=== PATIENT | male | born 1950 | race Two or more races ===

== ENCOUNTER 2016-09-18 11:06 | Inpatient (IN) | payer OTHER ==
[~2016-09-18] VITALS: Ht 157.5 cm; Wt 91.1 kg
[~2016-09-18 11:06] MED LIST: ALLO100T PO; BENA5TAB2 PO; LACT10SO55 PO; LOVA10TA63 PO
[2016-09-18] MEDS ORDERED: SOD CHLORIDE 0.9% 500 ML IV STA (11:31)
[2016-09-18] MEDS ORDERED: ONDANSETRON 4 MG INJ IV STA ×2 (11:35→13:42)
[2016-09-18] MEDS ORDERED: morphine 4 MG/ML VIAL IV STA (11:35)
[2016-09-18] MEDS ORDERED: PIPER-TAZO 3.375 GM IV (PMX) 100 ML IVPB STA (11:35)
[2016-09-18] MEDS ORDERED: FINA5TAB4 PO (11:41)
[2016-09-18] MEDS ORDERED: HYDR-906 PO (11:42)
[2016-09-18] MEDS ORDERED: TAMS-14 PO (11:42)
[2016-09-18] MEDS ORDERED: BENA20TA48 PO (11:43)
[2016-09-18] MEDS ORDERED: CHLO25TA13 PO (11:43)
[2016-09-18] MEDS ORDERED: MEVA40 PO (11:44)
[2016-09-18] MEDS ORDERED: METF-382 PO (11:44)
[2016-09-18] MEDS ORDERED: ALLO300T2 PO (11:45)
--- NOTE | 2016-09-18 11:45 | ERA ---
ER Documentation Chief Complaint Date/Time DATE: 09/18/16 TIME: 11:37 Chief Complaint has AP confirmed cholelitiasis sent here by pmd HPI This is a 58-year-old Pashto-speaking male with a known history of diabetes mellitus, hypertension and high cholesterol. The patient was seen and evaluated yesterday by his primary care physician Dr. atkins for abdominal pain. The patient indicates for the past 3 days he has been having significant persistent pain in the right upper quadrant that radiates to the tip of his right scapula. The pain is 10 out of 10 in intensity. The patient states he has had no hemoptysis hematemesis or melanotic stools. He has been unable to tolerate oral intake due to the pain in his last consumption of food was at roughly 10 AM yesterday morning, 14 hours prior to arrival. The patient had no fevers or shaking or chills. He denies any chest pain or pressure that radiates to the neck arm back or jaw. He states he never had any similar episodes of this pain in the past. The pain does not radiate to the lower abdomen and he is no frequency urgency or dysuria. The patient's past surgical history includes a hernia repair. The patient underwent a CT scan of the abdomen yesterday at his clinic which was read by the radiologist as a dilated gallbladder with pericholecystic stranding. He was instructed to come to the emergency department if his symptoms worsened and therefore given that the [place] did not improve his pain he presented for reevaluation to ROS All systems reviewed and are negative except as per history of present illness. Medications Home Meds Reported Medications Lactulose (Lactulose) 10 G/15 Ml Solution, 0 PO UNKNOWN DOSAGE 05/13/11 Allopurinol* (Allopurinol*) 100 Mg Tablet, MG PO UNKNOWN DOSAGE 05/13/11 Benazepril Hcl* (Benazepril Hcl*) 5 Mg Tablet, 0 PO UNKNOWN DOSAGE 05/13/11 Lovastatin* (Lovastatin*) 10 Mg Tablet, 10 MG PO 05/13/11 Allergies Allergies: Coded Allergies: No Known Allergy (Verified , 09/18/16) PMhx/Soc History of Surgery: Yes (LEFT INGUINAL HERINIA) Anesthesia Reaction: No Hx Neurological Disorder: No Hx Respiratory Disorders: No Hx Cardiac Disorders: Yes (HTN, HIGH CHOLESTEROL) Hx Psychiatric Problems: No Hx Miscellaneous Medical Probl: No Hx Alcohol Use: Yes (OCCASIONALLY) Hx Substance Use: No Hx Tobacco Use: No Smoking Status: Never smoker Physical Exam Vitals Vital Signs Date Time Temp Pulse Resp B/P Pulse Ox O2 Delivery O2 Flow Rate FiO2 09/18/16 11:14 98.6 68 18 186/81 97 Physical Exam Constitutional:Well-developed. Well-nourished. HEENT:Normocephalic. Atraumatic.Pupils were equal round reactive to light. Dry mucous membranes.No tonsillar exudates. Neck: No nuchal rigidity. No lymphadenopathy. No posterior cervical spine tenderness or step-offs. Respiratory: Not using accessory muscles of respiration.Lungs were clear to auscultation bilaterally. No rhonchi. No rales. No wheezing. Cardiovascular: Regular rate regular rhythm.No murmurs. No rubs were appreciated.S1, S2 normal. Distal pulses are palpable 2+ bilaterally. GI: Abdomen was soft. Tenderness in the right upper quadrant with positive Lenz sign. Non Distended. No pulsatile abdominal masses or bruits. No rebound. No guarding. Bowel sounds were present and normal. Muscle skeletal: Full range of motion of both the upper and lower extremities bilaterally.Normal muscle tone.No assymetrical calf tenderness or swelling. Skin: No petechia, no purpura. No lesions on the palms or the soles of the feet. No maculopapular rash. NEURO: Patient was alert, awake, orientated x3.No facial droop. Gait observed and normal with no ataxia.Speech had regular rate and rhythm. No focal neurological deficits. Results 24 hrs Current Medications Medications (Trade) Dose Ordered Sig/Brianne Route PRN Reason Start Time Stop Time Status Last Admin Dose Admin Sodium Chloride (NS) 500 ml @ 500 mls/hr Q1H STAT IV 09/18/16 11:31 09/18/16 12:30 Procedures/MDM The patient presented to the emergency department with epigastric pain. My differential diagnosis included but was not limited to abdominal aortic aneurysm , choledocholithiasis, gallstone ileus, renal colic, pyelonephritis, pancreatitis, peptic ulcer disease, atypical myocardical infarction, mesenteric ischemia, GERD, pulmonary infarction. The patient was placed on a field technical specialist, continuous pulse oximetry and IV access was established by nursing staff. An EKG was obtained to rule out myocardial ischemia. 12 Lead EKG tracing ordered and reviewed by myself showed: Normal sinus rhythm of 70 bpm and no arrhythmia. MT interval normal. QRS duration normal. No ST segment elevation No ST segment depression. No changes consistent with acute ischemia. There was no elevation of LFTs to suggest ductal obstruction, cholangitis or hepatitis. Given that the urinalysis did not show bilirubinuria, my suspicion for common duct obstruction or hepatitis was low. I obtained an ultrasound of the abdomen and given the patient's physical exam findings with positive Lenz sign I was concerned for cholecystitis. The patient was given IV Zosyn. For analgesic control the patient received intravenous morphine and Zofran. Surgical consult was placed to Dr. Marcos. The patient was made n.p.o. Patient will be admitted in serious condition the hospitalist Dr. Moseley for definitive treatment with a cholecystectomy. Departure Diagnosis: Primary Impression: Cholecystitis Condition: Serious AMIRA VANCE Sep 18, 2016 11:45
[2016-09-18 11:56] LABS: ADD SCAN DIFF NO
[2016-09-18 12:07] LABS: ABNORMAL IP MESSAGE 1; ALBUMIN 4.2 g/dl (3.3-4.9); BASOPHILS % 0.1 % (0.0-2.0); CHLORIDE 95 mmol/L (97-110); HEMATOCRIT 46.2 % (42.0-52.0); HEMOGLOBIN 15.1 g/dl (14.0-18.0); LYMPHOCYTES # 1.6 10^3/ul (0.8-2.9); LYMPHOCYTES % 10.6 % (15.0-51.0); MEAN CORPUSCULAR HEMOGLOBIN 29.7 pg (29.0-33.0); MEAN CORPUSCULAR HGB CONC 32.7 g/dl (32.0-37.0); MEAN CORPUSCULAR VOLUME 90.8 fl (82.0-101.0); MEAN PLATELET VOLUME 12.3 fl (7.4-10.4); MONOCYTE # 1.6 10^3/ul (0.3-0.9); NEUTROPHIL # 11.4 10^3/ul (1.6-7.5); NEUTROPHILS % 77.7 % (39.0-77.0); PLATELET COUNT 150 10^3/UL (140-415); POTASSIUM 4.2 mmol/L (3.5-5.1); RED BLOOD COUNT 5.09 10^6/ul (4.70-6.10); RED CELL DISTRIBUTION WIDTH 14.5 % (11.5-14.5); SODIUM 138 mmol/L (135-144); WHITE BLOOD COUNT 14.6 10^3/ul (4.8-10.8)
[2016-09-18 12:09] LABS: AMYLASE 50 U/L (11-123)
[2016-09-18 12:10] LABS: ALANINE AMINOTRANSFERASE 42 IU/L (13-69); ALBUMIN/GLOBULIN RATIO 0.95; ALKALINE PHOSPHATASE 92 IU/L (42-121); ANION GAP 19 (8-16); ASPARTATE AMINO TRANSFERASE 26 IU/L (15-46); BILIRUBIN,INDIRECT 0.8 mg/dl (0-1.1); BILIRUBIN,TOTAL 0.8 mg/dl (0.2-1.3); BLOOD UREA NITROGEN 13 mg/dl (7-20); CARBON DIOXIDE 28 mmol/L (21-31); CREATININE 0.76 mg/dl (0.61-1.24); GLUCOSE 146 mg/dl (70-220); TOTAL PROTEIN 8.6 g/dl (6.1-8.1)
[2016-09-18 12:18] LABS: INR 0.98
[2016-09-18 12:19] LABS: PARTIAL THROMBOPLASTIN TIME 30.9 Sec (25.0-35.0)
[2016-09-18 12:28] LABS: TROPONIN-I < 0.012 ng/ml (0.00-0.12)
--- NOTE | 2016-09-18 12:41 | RADRPT ---
PROCEDURE: US Abdomen (right upper quadrant). CLINICAL INDICATION: Abdominal pain. TECHNIQUE: Multiple real-time longitudinal and transverse images of the right upper quadrant of th e abdomen were acquired utilizing a curved array transducer. Images were reviewed on a high-resoluti on PACS workstation. COMPARISON: None FINDINGS: The liver is borderline enlarged at 17.8 cm in length with a slightly coarsened echotexture suggesti ng steatosis without focal mass or intrahepatic biliary dilatation. There is normal hepatopedal hawa w within the main portal vein. The gallbladder is well defined and demonstrates some sludge without stones. There is mild wall thickening at 4.1 mm. The common bile duct measures 7.9 mm in maximal dimension. The pancreas is obscured by overlying bowel gas.. No free fluid is identified. The right kidney measures 9.9 cm in length. There is normal echogenicity within the right kidney. There is no perinephric fluid collection. No hydronephrosis, mass, or calculus is seen. IMPRESSION: 1. Borderline hepatomegaly with a slightly coarsened echotexture suggesting mild steatosis. 2. Gallbladder wall thickening with a small amount of sludge present with borderline dilated common bile duct. RPTAT: [facility] Physician Chikis Date Time Electronically viewed and signed by Physician Chikis on 09/18/2016 12:40 /
[2016-09-18] MEDS ORDERED: ONDANSETRON 4 MG INJ IV PRN ×2 (13:30→15:00)
[2016-09-18] MEDS ORDERED: ACETAMINOPHEN 325 MG TAB PO PRN ×2 (13:30→15:00)
[2016-09-18] MEDS ORDERED: HYDROmorphONE 1 MG/ML SYG IV STA (13:42)
[2016-09-18 14:43] VITALS: Ht 157.5 cm; Wt 91.1 kg
[2016-09-18 14:47] VITALS: BP 137/74; PULSE 80; RESP 20
[2016-09-18] MEDS ORDERED: ACETAMINOPHEN 650 MG SUPP PR PRN (15:00)
[2016-09-18] MEDS ORDERED: HYDROCODONE/APAP (5/325) TAB PO PRN ×2 (15:00)
[2016-09-18] MEDS ORDERED: BISACODYL 10 MG SUPP PR PRN (15:00)
[2016-09-18] MEDS ORDERED: NACL 0.9% 3 ML SYG IV SCH (15:00)
[2016-09-18] MEDS ORDERED: MAGNESIUM HYDROXIDE 30ML CUP PO PRN (15:00)
[2016-09-18] MEDS ORDERED: DOCUSATE SODIUM 100 MG CAP PO PRN (15:00)
[2016-09-18] MEDS: SOD CHLORIDE 0.9% 1,000 ML IV SCH (15:45)
--- NOTE | 2016-09-18 17:02 | RADRPT ---
PROCEDURE: MRCP. CLINICAL INDICATION: Abdominal pain, common bile duct dilatation. TECHNIQUE: MRCP was performed. Patient was examined without contrast. 3-D coronal rotating MIP i mages of the biliary tree are available for review. COMPARISON: Ultrasound, 09/18/2016 FINDINGS: The gallbladder is distended and contains sludge and/or small gallstones. Gallbladder wall thickeni ng and pericholecystic fluid are identified. Findings are suggestive of acute cholecystitis. There is no intra or extrahepatic biliary dilatation. No common duct stone, stricture or filling defect is identified. Pancreatic duct is normal in caliber. Liver, pancreas, spleen, adrenal glands and kidneys are unremarkable except for benign renal cysts. No obstructive uropathy is identified. The stomach is grossly unremarkable. Abdominal aorta is no rmal in caliber. There is no retroperitoneal or emmy hepatis lymphadenopathy. No bowel obstructio n or abscess is identified. The surrounding osseous structures are unremarkable. IMPRESSION: 1. The gallbladder is distended and contains sludge and/or small gallstones. Gallbladder wall thic kening and pericholecystic fluid are identified. Findings are suggestive of acute cholecystitis. 2. No biliary dilatation or choledocholithiasis is identified. RPTAT: AA .Bernabe Alfaro MD, MD Date Time Electronically viewed and signed by .Bernabe Alfaro MD, on 09/18/2016 17:02 .R/
[2016-09-18] MEDS: PIPER-TAZO 3.375 GM IV (PMX) 100 ML IVPB SCH (17:22)
[2016-09-18 20:49] VITALS: BP 101/56; RESP 18
[2016-09-18] MEDS: TAMSULOSIN (SR) 0.4 MG CAP PO SCH (21:10)
[2016-09-18] MEDS: morphine 2 MG INJ IV PRN (21:10)
[2016-09-18] MEDS: ATORVASTATIN 10 MG TAB PO SCH (21:11)
--- NOTE | 2016-09-18 23:37 | CONS ---
DATE OF ADMISSION: 09/18/2016 DATE OF CONSULTATION: 09/18/2016 CHIEF COMPLAINT: 1. Abdominal pain. 2. Cholecystitis. 3. Leukocytosis. 4. BMI of 37. 5. Hypertension. 6. Hypercholesterolemia. HISTORY OF PRESENT ILLNESS: Mr. Keegan Tapia is a 66-year-old male with multiple comorbidit ies who presents with repeated episodes of abdominal pain and epigastric and right upper quadrant as sociated with radiation of pain into the scapula with 10/10 sharp pain. He denies any blood per milena th or rectum. No dysuria. No chest pain, no shortness of breath. No fevers or chills. No nausea or vomiting. He has had multiple similar episodes in the past. No trauma or sick contacts. No vis ual or neurologic changes. No seizure. No rashes. No color change of skin, urine, stool, or eyeba lls. In the emergency room, he is found to be afebrile with stable vitals. Blood work shows leukocytosis with a left shift. Chemistry is mostly normal, no abnormalities in the LFTs. Coags are within nor mal. Ultrasound of the abdomen identifies hepatomegaly with steatosis and gallbladder wall thickening wit h borderline common bile duct. MRCP was performed, identifying gallbladder distention with sludge a nd/or small gallstones. There was gallbladder wall thickening and pericholecystic fluid. This is s uggestive of acute cholecystitis. No biliary dilatation or choledocholithiasis is identified. No s tones were seen on the ultrasound. PAST MEDICAL HISTORY: 1. Diabetes. 2. Hypertension. 3. Morbid obesity. 4. History of ventral hernia. 5. Hypercholesterolemia. 6. Possible acalculous cholecystitis. 7. Abdominal pain. PAST SURGICAL HISTORY: Ventral hernia repair. MEDICATIONS: As per SEP. ALLERGIES: NONE. SOCIAL HISTORY: No recreational drugs or tobacco. Social ETOH. FAMILY HISTORY: Noncontributory. REVIEW OF SYSTEMS: A 12-point review of systems negative unless addressed in the HPI. PHYSICAL EXAMINATION: VITAL SIGNS: Temperature is 98.6, pulse 68, blood pressure 196/81. GENERAL: No acute distress, obese. HEENT: Pupils equal, reactive. No scleral icterus. Mucous membranes are moist. NECK: Supple, no JVD. PULMONARY: Normal respiratory effort. No wheezing. HEART: S1, S2 present. ABDOMEN: Soft. Minimally tender in the epigastric and right upper quadrant without rebound, guardi ng, rigidity, or Lenz's. EXTREMITIES: No edema. VASCULAR: Cap refill less than 2 seconds. NEUROLOGIC: Alert, oriented, moves all 4 extremities grossly. LABORATORY AND RADIOGRAPHIC: As per chart and HPI. ASSESSMENT AND PLAN: Mr. Keegan Tapia is a 66-year-old male with multiple significant comor bidities. 1. Abdominal pain with cholecystitis, questionable acalculous versus calculus (stones not seen on u ltrasound and questionable on MRCP). Continue antibiotics. Will monitor patient. If symptoms have not improved or worsening, will proceed with surgery. The patient is understanding of the situatio n and in agreement with the plan. 2. Morbid obesity. Patient is highly encouraged to optimize his nutrition and exercise to improve his overall health status. 3. Hypertension. Continue nutrition and medication control and encourage weight loss. 4. Diabetes. Continue nutrition and medication control and encourage weight loss. 5. Hypercholesterolemia. Continue nutrition and medication control and encourage weight loss. 6. Leukocytosis secondary to #1. Continue antibiotics and treatment as above. Thank you very much for consulting me in this patient's care. Dictated By: VADIM NEGRO/JAY Conf#: [id number] DID#: [id number]
[2016-09-19] VITALS (8 sets, daily range): BP systolic 115–131; BP diastolic 63–77; PULSE 66–126; RESP 14–22
[2016-09-19] MEDS: SOD CHLORIDE 0.9% 1,000 ML IV SCH ×3 (00:56→11:23)
[2016-09-19] MEDS: PIPER-TAZO 3.375 GM IV (PMX) 100 ML IVPB SCH ×4 (01:35→17:34)
[2016-09-19] MEDS: morphine 2 MG INJ IV PRN ×2 (01:37→07:42)
[2016-09-19] MEDS: PANTOPRAZOLE 40 MG INJ IV SCH (05:04)
[2016-09-19 05:26] LABS: ALBUMIN 3.5 g/dl (3.3-4.9)
[2016-09-19 05:27] LABS: POTASSIUM 3.7 mmol/L (3.5-5.1)
[2016-09-19 05:29] LABS: CREATININE 0.79 mg/dl (0.61-1.24)
[2016-09-19 05:30] LABS: ALBUMIN/GLOBULIN RATIO 0.89; BILIRUBIN,INDIRECT 1.1 mg/dl (0-1.1); BILIRUBIN,TOTAL 1.1 mg/dl (0.2-1.3); CALCIUM 8.2 mg/dl (8.4-10.2); PHOSPHORUS 2.6 mg/dl (2.5-4.9); TOTAL PROTEIN 7.4 g/dl (6.1-8.1)
[2016-09-19 05:31] LABS: CHOL/HDL RATIO 2.8 RATIO
[2016-09-19 05:39] LABS: T3 UPTAKE 38.6 % (23.5-40.5)
[2016-09-19 05:53] LABS: THYROID STIMULATING HORMONE 1.01 MIU/L (0.465-4.680)
--- NOTE | 2016-09-19 06:17 | HP ---
DATE OF ADMISSION: 09/18/2016 TIME SEEN: 2300 CHIEF COMPLAINT: Abdominal pain. HISTORY OF PRESENT ILLNESS: The patient is a 66-year-old male with a history of hypertension, diabe alysa, dyslipidemia, BPH, gout, and morbid obesity with a BMI of almost 37 who presented to the emerge ncy department with a chief complaint of abdominal pain. Pain is mainly localized in right upper qu adrant area and also at some extent in the epigastric area with radiation to his upper back. He als o reported nausea, but no vomiting. Because if the severity of the pain, he had not eaten since yes terday. He was evaluated at the clinic prior to coming to [facility]. At the clinic, CT scan shows dilate d gallbladder with pericholecystic stranding. He was told to go to the ER because of a concern for cholecystitis. He denied any fever, chills, chest pain, shortness of breath. When he presented to the ER, blood pressure was elevated at 186/81. Otherwise, the rest of his marquez ls were stable. Laboratory value shows a WBC of 14.6, chloride 95. Otherwise, CBC and CMP are with in normal limits including his liver chemistries and lipase. Abdominal ultrasound here shows mild s teatosis and gallbladder wall thickening with a small amount of sludge with borderline dilated commo n bile duct. MRCP shows a distended gallbladder with sludge or small gallstones. Gallbladder wall thickening and pericholecystic fluid were identified suggestive of acute cholecystitis. No biliary dilatation or choledocholithiasis. The patient has already been seen by Dr. Marcos from surgery [facility] plan for surgical intervention if pain persists or worsens. REVIEW OF SYSTEMS: A 12-point review of systems was performed and is negative except as mentioned i n the HPI. PAST MEDICAL HISTORY: As per HPI. PAST SURGICAL HISTORY: Hernia repair. SOCIAL HISTORY: Drinks occasionally, otherwise denied tobacco or illicit drug use. ALLERGIES: NO KNOWN DRUG ALLERGIES. HOME MEDICATIONS: 1. Flomax. 2. Benazepril. 3. Lovastatin. 4. [place]. 5. Chlorthalidone. 6. Metformin. 7. Allopurinol. 8. Finasteride. PHYSICAL EXAMINATION: VITAL SIGNS: Stable. GENERAL: No acute distress. He actually looks actually looks comfortable. HEENT: No obvious head deformity. Pupils are reactive to light. Extraocular muscles intact. CARDIOVASCULAR: Regular rate and rhythm with no extra heart sounds. LUNGS: Clear. ABDOMEN: Soft. There was tenderness in the right upper quadrant area with no guarding, no rigidity . EXTREMITIES: No edema. LABORATORY: Pertinent positives as mentioned in the HPI. IMAGING: Abdominal ultrasound and MRCP as well as a CT of abdomen from an outside clinic with resul ts as mentioned in the HPI. IMPRESSION: 1. Acute cholecystitis. 2. Right upper quadrant abdominal pain, secondary to above. 3. Hypertension, now blood pressure within acceptable range. 4. History of diabetes. 5. History of dyslipidemia. 6. History of BPH 7. History of gout. 8. Obesity with a BMI of almost 37. PLAN: We will keep n.p.o. with IV fluids. We will provide pain medication and antiemetics as neede d. He has already been seen by Dr. Marcos from surgery with a plan for surgical intervention if sy mptoms persist or worsen. Will provide pain medication and antiemetics as needed. He will be diya nued with his home medication with adjustment as needed. Further workup and management will be per clinical course. Dictated By: CINDY LORD/JAY Conf#: [id number] DID#: [id number]
[2016-09-19] MEDS: BENAZEPRIL 20 MG TAB PO SCH (07:37)
[2016-09-19] MEDS: ALLOPURINOL 300 MG TAB PO SCH (07:37)
[2016-09-19] MEDS: FINASTERIDE 5 MG TAB PO SCH (07:37)
[2016-09-19] MEDS: CHLORTHALIDONE 25 MG TAB PO SCH (07:37)
[2016-09-19 12:49] LABS: ADD SCAN DIFF NO
[2016-09-19 12:53] LABS: ABNORMAL IP MESSAGE 1; BASOPHILS % 0.1 % (0.0-2.0); HEMATOCRIT 39.6 % (42.0-52.0); HEMOGLOBIN 13.4 g/dl (14.0-18.0); LYMPHOCYTES # 0.9 10^3/ul (0.8-2.9); LYMPHOCYTES % 6.4 % (15.0-51.0); MEAN CORPUSCULAR HEMOGLOBIN 30.4 pg (29.0-33.0); MEAN CORPUSCULAR HGB CONC 33.8 g/dl (32.0-37.0); MEAN CORPUSCULAR VOLUME 89.8 fl (82.0-101.0); MEAN PLATELET VOLUME 12.2 fl (7.4-10.4); MONOCYTE # 1.6 10^3/ul (0.3-0.9); MONOCYTES % 11.4 % (0.0-11.0); NEUTROPHIL # 11.5 10^3/ul (1.6-7.5); NEUTROPHILS % 81.7 % (39.0-77.0); PLATELET COUNT 121 10^3/UL (140-415); RED BLOOD COUNT 4.41 10^6/ul (4.70-6.10); RED CELL DISTRIBUTION WIDTH 14.4 % (11.5-14.5); WHITE BLOOD COUNT 14.1 10^3/ul (4.8-10.8)
--- NOTE | 2016-09-19 15:50 | PN ---
Date/Time of Note Date/Time of Note DATE: 09/19/16 TIME: 15:41 Assessment/Plan VTE Prophylaxis VTE Prophylaxis Intervention: SCD's Lines/Catheters IV Catheter Type (from Nrs): Peripheral IV Urinary Cath still in place: No Assessment/Plan Chief Complaint/Hosp Course Does not and plan 1. Acute cholecystitis. Patient with MRI and abdominal imaging consistent with cholecystitis. Still was symptomatic pain. Follow-up with surgeon. Tentative plan for cholecystectomy. Continue on antibiotics. Keep npo 2. Leukocytosis. Continue on antibiotics. Likely secondary to #1 3. Essential hypertension. Continue on antihypertensives and adjust as needed 4. History of BPH. Remains on Proscar. To be continued 5. Dyslipidemia. Continue on statin disposition and plan: Continue IV fluids. Continue with analgesics. Antipyretics for fever. Follow-up with surgeon recommendations Discussed in of care with Dr. Moseley Problems: Subjective 24 Hr Interval Summary Free Text/Dictation still with moderate abdominal pain. also noted with fever this morning Exam/Review of Systems Vital Signs Vitals Vital Signs Date Time Temp Pulse Resp B/P Pulse Ox O2 Delivery O2 Flow Rate FiO2 09/19/16 14:45 97.4 66 09/19/16 08:03 18 130/72 95 09/18/16 14:47 Room Air Intake and Output 09/18/16 09/18/16 09/19/16 15:00 23:00 07:00 Intake Total 200 ml 1025 ml Balance 200 ml 1025 ml Exam General: still in distress secondary to abd pain Eyes: pupils equal round, Anicteric sclera Neck: Supple nontender, no JVD Cardiac: regular rate Pulmonary: No coarse rhonchi or breathing auscultated GI: tender on palpation in epigastric area and right upper quadrant area Extremities: No edema bilateral lower extremities Skin: Clean dry and intact Neurologic: Alert to person place and time and situation Results Result Diagram: 09/19/16 1220 09/19/16 0425 Results 24 hrs Laboratory Tests Test 09/19/16 04:25 09/19/16 12:20 Alanine Aminotransferase (ALT/SGPT) 96 H Albumin 3.5 Albumin/Globulin Ratio 0.89 Alkaline Phosphatase 102 Anion Gap 15 Aspartate Amino Transf (AST/SGOT) 58 #H Blood Urea Nitrogen 12 Calcium Level 8.2 L Carbon Dioxide Level 25 Chloride Level 100 Cholesterol Level 140 Cholesterol/HDL Ratio 2.8 Creatinine 0.79 Direct Bilirubin 0.00 Free Thyroxine Index 2.08 Globulin 3.90 H Glucose Level 135 HDL Cholesterol 50 Hemoglobin A1c 6.1 H Indirect Bilirubin 1.1 LDL Cholesterol, Calculated 78 Magnesium Level 2.0 Phosphorus Level 2.6 Potassium Level 3.7 Sodium Level 136 Thyroid Stimulating Hormone (TSH) 1.010 Thyroxine (T4) 5.4 L Total Bilirubin 1.1 Total Protein 7.4 # Triglycerides Level 58 Triiodothyronine (T3) Uptake 38.6 Basophils # 0.0 Basophils % 0.1 Eosinophils # 0.0 Eosinophils % 0.0 Hematocrit 39.6 L Hemoglobin 13.4 L Lymphocytes # 0.9 Lymphocytes % 6.4 L Mean Corpuscular Hemoglobin 30.4 Mean Corpuscular Hemoglobin Concent 33.8 Mean Corpuscular Volume 89.8 Mean Platelet Volume 12.2 H Monocytes # 1.6 H Monocytes % 11.4 H Neutrophils # 11.5 H Neutrophils % 81.7 H Nucleated Red Blood Cells # 0.0 Nucleated Red Blood Cells % 0.0 Platelet Count 121 L Red Blood Count 4.41 L Red Cell Distribution Width 14.4 White Blood Count 14.1 H Medications Medications Current Medications Allopurinol (Zyloprim) 300 mg DAILY PO ; Start 09/19/16 at 09:00 Benazepril HCl (Lotensin) 20 mg DAILY PO ; Start 09/19/16 at 09:00 Chlorthalidone (Hygroton) 12.5 mg DAILY PO ; Start 09/19/16 at 09:00 Finasteride (Proscar) 5 mg DAILY PO ; Start 09/19/16 at 09:00 Tamsulosin HCl (Flomax) 0.4 mg DAILY@21 PO Last administered on 09/18/16 21:10 ; Admin Dose 0.4 MG; Start 09/18/16 at 21:00 Atorvastatin Calcium 10 mg 10 mg DAILY@21 PO Last administered on 09/18/16 21: 11; Admin Dose 10 MG; Start 09/18/16 at 21:00 Sodium Chloride (NS) 1,000 ml @ 100 mls/hr Q10H IV Last administered on 11:23; Admin Dose 100 MLS/HR; Start 09/18/16 at 14:56 Ondansetron HCl (Zofran Inj) 4 mg Q6H PRN IV NAUSEA AND/OR VOMITING; Start 09/18 at 15:00 Acetaminophen (Tylenol Tab) 650 mg Q6H PRN PO PAIN LEVEL 1-3 OR FEVER; Start at 15:00 Acetaminophen (Tylenol Supp) 650 mg Q6H PRN MT PAIN LEVEL 1-3 OR FEVER; Start 09/18/16 at 15:00 Acetaminophen/ Hydrocodone Bitart ([place] (5/325)) 1 tab Q6H PRN PO MODERATE PAIN LEVEL 4-6; Start 09/18/16 at 15:00 Acetaminophen/ Hydrocodone Bitart ([place] (5/325)) 2 tab Q6H PRN PO SEVERE PAIN LEVEL 7-10; Start 09/18/16 at 15:00 Morphine Sulfate (morphine) 2 mg Q4H PRN IV SEVERE PAIN LEVEL 7-10 Last administered on 09/19/16 07:42; Admin Dose 2 MG; Start 09/18/16 at 15:00 Docusate Sodium (Colace) 100 mg Q12H PRN PO CONSTIPATION; Start 09/18/16 at 15: 00 Magnesium Hydroxide (Milk Of Mag) 30 ml DAILY PRN PO CONSTIPATION; Start at 15:00 Bisacodyl (Dulcolax Supp) 10 mg DAILY PRN MT CONSTIPATION; Start 09/18/16 at 15: 00 Pantoprazole 40 mg 40 mg DAILY@06 IV Last administered on 09/19/16 05:04; Admin Dose 40 MG; Start 09/19/16 at 06:00 Piperacillin Sod/ Tazobactam Sod (Zosyn 3.375gm/ 100 ml (Pmx)) 100 ml @ 200 mls /hr Q6 IVPB Last administered on 09/19/16 11:23; Admin Dose 200 MLS/HR; Start 09/18/16 at 18:00 THERESE DE PAZ Sep 19, 2016 15:49
--- NOTE | 2016-09-19 17:13 | PN ---
Date/Time of Note Date/Time of Note DATE: 09/19/16 TIME: 17:11 Assessment/Plan Lines/Catheters IV Catheter Type (from [facility]): Peripheral IV Guerrier in Place (from [facility]): No Assessment/Plan Chief Complaint/Hosp Course 1. Abdominal pain with cholecystitis, questionable acalculous versus calculus ( stones not seen on ultrasound and questionable on MRCP). -Continue antibiotics. -OR -Judicious fluid management 2. Morbid obesity. Patient is highly encouraged to optimize his nutrition and exercise to improve his overall health status. 3. Hypertension. Continue nutrition and medication control and encourage weight loss. 4. Diabetes. Continue nutrition and medication control and encourage weight loss. 5. Hypercholesterolemia. Continue nutrition and medication control and encourage weight loss. 6. Leukocytosis secondary to #1. Continue antibiotics and treatment as above. Thank you Problems: Subjective 24 Hr Interval Summary Fever. Chills. Pain persists. No n/v. No cp/sob. No cough/ocampo/dizzy/visual or neuro changes. No dysuria. Wants to proceed with surgery knowing it is possibly acalculous cholecystitis. Exam/Review of Systems Vital Signs Vitals Vital Signs Date Time Temp Pulse Resp B/P Pulse Ox O2 Delivery O2 Flow Rate FiO2 09/19/16 14:45 97.4 66 09/19/16 08:03 18 130/72 95 09/18/16 14:47 Room Air Intake and Output 09/18/16 09/18/16 09/19/16 15:00 23:00 07:00 Intake Total 200 ml 1025 ml Balance 200 ml 1025 ml Exam Free Text/Dictation GENERAL: No acute distress, obese. HEENT: Pupils equal, reactive. No scleral icterus. Mucous membranes are moist. NECK: Supple, no JVD. PULMONARY: Normal respiratory effort. No wheezing. HEART: S1, S2 present. ABDOMEN: Soft. Minimally tender in the epigastric and right upper quadrant without rebound, guarding, rigidity, or Elnz's. EXTREMITIES: No edema. VASCULAR: Cap refill less than 2 seconds. NEUROLOGIC: Alert, oriented, moves all 4 extremities grossly. Results Result Diagram: 09/19/16 1220 09/19/16 0425 VADIM SHAY MD Sep 19, 2016 17:12
[2016-09-19] MEDS ORDERED: LIDOCAINE 2% (SDV) 5 ML INJ ONE ×2 (19:56→22:04)
[2016-09-19] MEDS ORDERED: MIDAZOLAM 1 MG/ML 2 ML INJ ONE (19:56)
[2016-09-19] MEDS ORDERED: PROPOFOL 0 ML ONE (19:57)
[2016-09-19] MEDS ORDERED: FENTAnyl 50 MCG/ML VIAL ONE (19:57)
[2016-09-19] MEDS ORDERED: ROCURONIUM 50 MG INJ ONE ×2 (19:57→22:04)
[2016-09-19] MEDS ORDERED: SUCCINYLCHOLINE CHLORIDE 100 MG/5 ML SYG IV ONE ×2 (19:57→22:04)
[2016-09-19] MEDS: ATORVASTATIN 10 MG TAB PO SCH (21:00)
[2016-09-19] MEDS: TAMSULOSIN (SR) 0.4 MG CAP PO SCH (21:00)
[2016-09-19] MEDS ORDERED: BUPIVACAINE 0.25%/EPI (SDV) 30 ML INJ ONE (21:31)
[2016-09-19] MEDS ORDERED: LIDOCAINE 1% (MPF) 30 ML INJ ONE (21:31)
[2016-09-19] MEDS ORDERED: IOHEXOL 300MG/ML 30 ML BTL ONE (21:47)
[2016-09-19] MEDS ORDERED: GLYCOPYRROLATE 0.4 MG INJ ONE ×3 (22:04→23:05)
[2016-09-19] MEDS ORDERED: NEOSTIGMINE 3 MG/3 ML SYRINGE ONE ×2 (22:04→23:05)
[2016-09-19] MEDS ORDERED: PROPOFOL 20 ML ONE (22:04)
[2016-09-19] MEDS ORDERED: MEPERIDINE 100 MG INJ ONE (22:05)
--- NOTE | 2016-09-19 22:26 | OPR ---
Date/Time of Note Date/Time of Note DATE: 09/19/16 TIME: 22:24 Operative Report Procedure Date: Sep 19, 2016 Procedure Description Preoperative Diagnosis: 1. Cholecystitis, acalculous versus calculus 2. Abnormal LFTs 3. Abdominal pain 4. Leukocytosis Postoperative Diagnosis: 1. Cholecystitis, acalculous, possible gangrenous 2. Abnormal LFTs 3. Abdominal pain 4. Leukocytosis possible sepsis Operation(s) Performed: 1. 3 port laparoscopic cholecystectomy 2. Laparoscopic liver wedge resection biopsy 3. Local anesthetic [place], [id number] 4. Laparoscopic guided transversus abdominis plane block, bilateral Surgeon: VADIM SHAY MD Anesthesia: general, local, & regional Anesthesiologist: Ghanshyam Dean MD Estimated Blood Loss: 50 ml's Specimens: Liver Gallbladder Tubes/Drains: 19 [place] Selvin Complications: None Pt Condition Post Procedure: stable Disposition: PACU Indications: Per notes. Risks include but are not limited to bleeding, infection, abscess, seroma, damage to intestines, damage to the liver, damage to biliary tree, hernia formation, chronic pain, biloma, need for reoperations or further surgeries, MA , stroke, PE, DVT, pneumonia, organ failures, or even . Procedure Description: Patient was brought and placed supine on the operating table SCDs were placed, preoperative antibiotics were administered, all pressure points were well-padded , and after induction of anesthesia patient was prepped and draped in usual sterile fashion and timeout was performed. Incision was made in the ruq and using optiview port and 5mm 0deg scope abdomen was entered and insufflated to 15mmHg. . Laparoscopy was performed with a 5 mm 30 scope. No injuries were identified. The liver looks somewhat abnormal color. Gallbladder is significantly infected with possible gangrenous changes. 12 mm port is placed in subxiphoid under direct visualization followed by another 5 mm port in the right upper quadrant. All port sites were injected with quarter percent Marcaine with epi and 1% lidocaine prior to any incisions. Bilateral transversus abdominis plane block was performed under laparoscopic visualization to aid with pain control intra-and postoperatively. Patient was placed in reverse Trendelenburg and right side up on gallbladder was retracted superolaterally. Using electrocautery and blunt dissection I was able to identify the cystic artery and cystic duct. The duct tapered into the gallbladder. Full critical angle view was identified. Clips were placed on artery twice proximally and once distally and transected. The duct was transected with endogia white load stapler. The gallbladder had been taken off the liver with electrocautery using a top down approach feeding straight into the cystic duct before cystic duct transection. Hemostasis was obtained. Gallbladder was placed in an Endo Catch bag and removed through the subxiphoid port site which had to be enlarged to allow extraction. Due to the abnormality of the liver decision was made to perform liver wedge resection which was done with electrocautery and scissor with complete hemostasis right after. The specimen was sent to pathology for further evaluation. There was complete hemostasis. 19 [place] Selvin drain was placed through the lateral port site and secured with 2-0 nylon. 12 mm made port site fascia was closed with Endo Close of an 0 Vicryl in a [id number] manner. Ports and CO2 were removed under direct visualization. Next complete hemostasis. Wounds were thoroughly irrigated skin was closed with 4-0 Monocryl in subcuticular fashion. Dermabond was applied. Patient was extubated and transferred to recovery room in stable condition and all counts were correct and the end of the operation 2. VADIM SHAY MD Sep 19, 2016 22:26 4-0 Monocryl in subcuticular fashion. Dermabond was applied. Patient was extubated and transferred to recovery room in stable condition and all counts were correct and the end of the operation 2. HIDA scan will be obtained to verify the findings. VADIM SHAY MD Sep 19, 2016 22:26
[2016-09-19] MEDS ORDERED: HYDROmorphONE 1 MG/ML SYG IV PRN (22:30)
[2016-09-20] VITALS: BP 124/67; PULSE 108; RESP 18
[2016-09-20] MEDS ORDERED: morphine (1 MG/ML) 10ML SYRINGE IV PRN ×2
[2016-09-20] MEDS ORDERED: MIDAZOLAM 1 MG/ML 2 ML INJ IV PRN
[2016-09-20] MEDS ORDERED: LABETALOL HCL 20MG INJ IV PRN
[2016-09-20] MEDS ORDERED: DIPHENHYDRAMINE 50 MG INJ IV PRN
[2016-09-20] MEDS ORDERED: EPHEDrine SULFATE 50 MG/5 ML SYG IV PRN
[2016-09-20] MEDS ORDERED: ONDANSETRON 4 MG INJ IV PRN
[2016-09-20] MEDS ORDERED: HYDROmorphONE (0.2 MG/ML) 10ML SYG IV PRN ×2
[2016-09-20] MEDS ORDERED: MEPERIDINE 25 MG INJ IV PRN
[2016-09-20] MEDS ORDERED: FENTAnyl 50 MCG/ML VIAL IV PRN
[2016-09-20] MEDS ORDERED: hydrALAzine 20 MG INJ IV PRN
[2016-09-20] MEDS ORDERED: METOCLOPRAMIDE 10 MG INJ IV PRN
[2016-09-20 00:05] VITALS: BP 118/67; PULSE 108; RESP 19
[2016-09-20] MEDS: FENTAnyl 50 MCG/ML VIAL IV PRN ×2 (00:08→00:13)
[2016-09-20] MEDS: PIPER-TAZO 3.375 GM IV (PMX) 100 ML IVPB SCH ×5 (00:50→23:41)
[2016-09-20 01:08] VITALS: BP 116/60; PULSE 104; RESP 20
[2016-09-20] MEDS: SOD CHLORIDE 0.9% 1,000 ML IV SCH ×3 (04:28→16:23)
[2016-09-20 04:57] LABS: ADD SCAN DIFF NO
[2016-09-20 05:13] LABS: BASOPHILS % 0.1 % (0.0-2.0); HEMATOCRIT 37.2 % (42.0-52.0); HEMOGLOBIN 12.2 g/dl (14.0-18.0); LYMPHOCYTES # 0.9 10^3/ul (0.8-2.9); LYMPHOCYTES % 5.6 % (15.0-51.0); MEAN CORPUSCULAR HGB CONC 32.8 g/dl (32.0-37.0); MEAN CORPUSCULAR VOLUME 91.6 fl (82.0-101.0); MEAN PLATELET VOLUME 12.2 fl (7.4-10.4); NEUTROPHIL # 14.7 10^3/ul (1.6-7.5); NEUTROPHILS % 87.5 % (39.0-77.0); PLATELET COUNT 115 10^3/UL (140-415); RED BLOOD COUNT 4.06 10^6/ul (4.70-6.10); RED CELL DISTRIBUTION WIDTH 14.8 % (11.5-14.5); WHITE BLOOD COUNT 16.8 10^3/ul (4.8-10.8)
[2016-09-20 05:24] LABS: ALBUMIN 2.9 g/dl (3.3-4.9); POTASSIUM 3.9 mmol/L (3.5-5.1)
[2016-09-20 05:26] LABS: CREATININE 0.92 mg/dl (0.61-1.24)
[2016-09-20 05:27] LABS: ALBUMIN/GLOBULIN RATIO 0.74; BILIRUBIN,INDIRECT 0.8 mg/dl (0-1.1); BILIRUBIN,TOTAL 0.8 mg/dl (0.2-1.3); TOTAL PROTEIN 6.8 g/dl (6.1-8.1)
[2016-09-20 05:28] LABS: CALCIUM 8.1 mg/dl (8.4-10.2)
[2016-09-20] MEDS: PANTOPRAZOLE 40 MG INJ IV SCH (05:30)
[2016-09-20 08:30] VITALS: BP 116/60; PULSE 101
[2016-09-20] MEDS: BENAZEPRIL 20 MG TAB PO SCH (08:32)
[2016-09-20] MEDS: FINASTERIDE 5 MG TAB PO SCH (08:32)
[2016-09-20] MEDS: ALLOPURINOL 300 MG TAB PO SCH (08:32)
[2016-09-20 08:33] VITALS: BP 99/59; RESP 18
[2016-09-20] MEDS: CHLORTHALIDONE 25 MG TAB PO SCH (08:33)
[2016-09-20] MEDS: HYDROCODONE/APAP (5/325) TAB PO PRN ×2 (11:42→20:11)
--- NOTE | 2016-09-20 16:05 | PN ---
Date/Time of Note Date/Time of Note DATE: 09/20/16 TIME: 16:02 Assessment/Plan VTE Prophylaxis VTE Prophylaxis Intervention: SCD's Lines/Catheters [facility] Peripheral IV Urinary Cath still in place: No Assessment/Plan Chief Complaint/Hosp Course Does not and plan 1. Acalculous cholecystitis with possible gangrene. Patient with MRI and abdominal imaging consistent with cholecystitis. Patient status post laparoscopic cholecystectomy. Continue on antibiotics. Continue with surgeon recommendations 2. Leukocytosis. Continue on antibiotics. Likely secondary to #1. Afebrile at this time. 3. Essential hypertension. Continue on antihypertensives and adjust as needed. Stable 4. History of BPH. BPH medications to be continued. 5. Dyslipidemia. We'll continue on statin disposition and plan: Continue postoperative care at this time. Continue with analgesics and antipyretics for fever. We'll discharge when cleared by consultants and medically stable. Discussed in of care with Dr. Moseley Problems: Subjective 24 Hr Interval Summary Free Text/Dictation still with some reported abdominal discomfort Exam/Review of Systems Vital Signs Vitals Vital Signs Date Time Temp Pulse Resp B/P Pulse Ox O2 Delivery O2 Flow Rate FiO2 09/20/16 08:33 98.2 79 18 99/59 95 09/20/16 01:08 Nasal Cannula 2.0 Intake and Output 09/19/16 09/19/16 09/20/16 15:00 23:00 07:00 Intake Total 1890 ml Output Total 140 ml Balance 1750 ml Exam General: Still noted with some abdominal pain. Eyes: pupils equal round, Anicteric sclera Neck: No obvious JVD seen Cardiac: Tachycardic at times and regular rate Pulmonary: No adventitious lung sounds GI: tender on palpation in epigastric area and right upper quadrant area Extremities: No edema bilateral lower extremities today Skin: Surgical site abdomen clean dry and intact Neurologic: Alert to person place and time and situation Results Result Diagram: 09/20/16 0445 09/20/16 0445 Results 24 hrs Laboratory Tests Test 09/20/16 04:45 Alanine Aminotransferase (ALT/SGPT) 70 H Albumin 2.9 L Albumin/Globulin Ratio 0.74 Alkaline Phosphatase 80 Anion Gap 13 Aspartate Amino Transf (AST/SGOT) 60 H Basophils # 0.0 Basophils % 0.1 Blood Urea Nitrogen 15 Calcium Level 8.1 L Carbon Dioxide Level 26 Chloride Level 105 Creatinine 0.92 Direct Bilirubin 0.00 Eosinophils # 0.0 Eosinophils % 0.0 Globulin 3.90 H Glucose Level 153 Hematocrit 37.2 L Hemoglobin 12.2 L Indirect Bilirubin 0.8 Lymphocytes # 0.9 Lymphocytes % 5.6 L Mean Corpuscular Hemoglobin 30.0 Mean Corpuscular Hemoglobin Concent 32.8 Mean Corpuscular Volume 91.6 Mean Platelet Volume 12.2 H Monocytes # 1.0 H Monocytes % 6.0 Neutrophils # 14.7 H Neutrophils % 87.5 H Nucleated Red Blood Cells # 0.0 Nucleated Red Blood Cells % 0.0 Platelet Count 115 L Potassium Level 3.9 Red Blood Count 4.06 L Red Cell Distribution Width 14.8 H Sodium Level 140 Total Bilirubin 0.8 Total Protein 6.8 White Blood Count 16.8 H Medications Medications Current Medications Allopurinol (Zyloprim) 300 mg DAILY PO Last administered on 09/20/16 08:32; Admin Dose 300 MG; Start 09/19/16 at 09:00 Benazepril HCl (Lotensin) 20 mg DAILY PO Last administered on 09/20/16 08:32; Admin Dose 20 MG; Start 09/19/16 at 09:00 Chlorthalidone (Hygroton) 12.5 mg DAILY PO Last administered on 09/20/16 08:33 ; Admin Dose 12.5 MG; Start 09/19/16 at 09:00 Finasteride (Proscar) 5 mg DAILY PO Last administered on 09/20/16 08:32; Admin Dose 5 MG; Start 09/19/16 at 09:00 Tamsulosin HCl (Flomax) 0.4 mg DAILY@21 PO Last administered on 09/18/16 21:10 ; Admin Dose 0.4 MG; Start 09/18/16 at 21:00 Atorvastatin Calcium 10 mg 10 mg DAILY@21 PO Last administered on 09/18/16 21: 11; Admin Dose 10 MG; Start 09/18/16 at 21:00 Sodium Chloride (NS) 1,000 ml @ 100 mls/hr Q10H IV Last administered on 04:28; Admin Dose 100 MLS/HR; Start 09/18/16 at 14:56 Ondansetron HCl (Zofran Inj) 4 mg Q6H PRN IV NAUSEA AND/OR VOMITING; Start 09/18 at 15:00 Acetaminophen (Tylenol Tab) 650 mg Q6H PRN PO PAIN LEVEL 1-3 OR FEVER; Start at 15:00 Acetaminophen (Tylenol Supp) 650 mg Q6H PRN [place] PAIN LEVEL 1-3 OR FEVER; Start 09/18/16 at 15:00 Acetaminophen/ Hydrocodone Bitart ([place] (5/325)) 1 tab Q6H PRN PO MODERATE PAIN LEVEL 4-6; Start 09/18/16 at 15:00 Acetaminophen/ Hydrocodone Bitart ([place] (5/325)) 2 tab Q6H PRN PO SEVERE PAIN LEVEL 7-10 Last administered on 09/20/16 11:42; Admin Dose 2 TAB; Start 09/18/16 at 15:00 Docusate Sodium (Colace) 100 mg Q12H PRN PO CONSTIPATION; Start 09/18/16 at 15: 00 Magnesium Hydroxide (Milk Of Mag) 30 ml DAILY PRN PO CONSTIPATION; Start at 15:00 Bisacodyl (Dulcolax Supp) 10 mg DAILY PRN [place] CONSTIPATION; Start 09/18/16 at 15: 00 Pantoprazole 40 mg 40 mg DAILY@06 IV Last administered on 09/20/16 05:30; Admin Dose 40 MG; Start 09/19/16 at 06:00 Piperacillin Sod/ Tazobactam Sod (Zosyn 3.375gm/ 100 ml (Pmx)) 100 ml @ 200 mls /hr Q6 IVPB Last administered on 09/20/16 11:42; Admin Dose 200 MLS/HR; Start 09/18/16 at 18:00 Hydromorphone HCl (Dilaudid) 0.5 mg Q2H PRN IV Breakthrough PAIN Last administered on 09/20/16 02:47; Admin Dose 0.5 MG; Start 09/19/16 at 22:30 THERESE DE PAZ Sep 20, 2016 16:05
[2016-09-20] MEDS: ATORVASTATIN 10 MG TAB PO SCH (20:10)
[2016-09-20] MEDS: TAMSULOSIN (SR) 0.4 MG CAP PO SCH (20:10)
[2016-09-20 21:54] VITALS: BP 98/61; RESP 18
--- NOTE | 2016-09-20 23:15 | PN ---
Date/Time of Note Date/Time of Note DATE: 09/20/16 TIME: 23:12 Assessment/Plan Lines/Catheters IV Catheter Type (from Nrs): Peripheral IV Guerrier in Place (from Nrs): No Assessment/Plan Chief Complaint/Hosp Course 1. Abdominal pain with acalculous cholecystitis s/p 3 port lap keyana, liver bx 09/19 -Continue antibiotics. -Judicious fluid management -Drain 2. Morbid obesity. Patient is highly encouraged to optimize his nutrition and exercise to improve his overall health status. 3. Hypertension. Continue nutrition and medication control and encourage weight loss. 4. Diabetes. Continue nutrition and medication control and encourage weight loss. 5. Hypercholesterolemia. Continue nutrition and medication control and encourage weight loss. 6. Leukocytosis secondary to #1. Continue antibiotics and treatment as above. Thank you Problems: Subjective 24 Hr Interval Summary s/p 3 port lap keyana, liver bx 09/19. Fever & chills improved. Pain improved. No n/v. No cp/sob. No cough/ocampo/dizzy/visual or neuro changes. No dysuria. Exam/Review of Systems Vital Signs Vitals Vital Signs Date Time Temp Pulse Resp B/P Pulse Ox O2 Delivery O2 Flow Rate FiO2 09/20/16 21:54 98.0 103 18 98/61 97 09/20/16 01:08 Nasal Cannula 2.0 Intake and Output 09/19/16 09/19/16 09/20/16 15:00 23:00 07:00 Intake Total 1890 ml Output Total 140 ml Balance 1750 ml Exam Free Text/Dictation GENERAL: No acute distress, obese. HEENT: Pupils equal, reactive. No scleral icterus. Mucous membranes are moist. NECK: Supple, no JVD. PULMONARY: Normal respiratory effort. No wheezing. HEART: S1, S2 present. ABDOMEN: Soft. Minimally tender in the epigastric and right upper quadrant. Drain. EXTREMITIES: No edema. VASCULAR: Cap refill less than 2 seconds. NEUROLOGIC: Alert, oriented, moves all 4 extremities grossly. Results Result Diagram: 09/20/16 0445 09/20/16 0445 VADIM SHAY MD Sep 20, 2016 23:15
[2016-09-21] MEDS: PIPER-TAZO 3.375 GM IV (PMX) 100 ML IVPB SCH ×3 (05:29→17:06)
[2016-09-21] MEDS: PANTOPRAZOLE 40 MG INJ IV SCH (05:29)
[2016-09-21] MEDS: SOD CHLORIDE 0.9% 1,000 ML IV SCH ×3 (06:47→20:15)
[2016-09-21 07:35] VITALS: BP 116/58; RESP 20
[2016-09-21] MEDS: FINASTERIDE 5 MG TAB PO SCH (08:33)
[2016-09-21] MEDS: CHLORTHALIDONE 25 MG TAB PO SCH (08:33)
[2016-09-21] MEDS: ALLOPURINOL 300 MG TAB PO SCH (08:33)
[2016-09-21] MEDS: BENAZEPRIL 20 MG TAB PO SCH (08:34)
[2016-09-21] MEDS ORDERED: HYDR-3498 PO (10:19)
[2016-09-21 10:53] LABS: ADD SCAN DIFF NO
[2016-09-21 10:58] LABS: BASOPHILS % 0.2 % (0.0-2.0); EOSINOPHILS # 0.1 10^3/ul (0.0-0.5); EOSINOPHILS % 1.1 % (0.0-7.0); HEMATOCRIT 38.9 % (42.0-52.0); HEMOGLOBIN 12.6 g/dl (14.0-18.0); LYMPHOCYTES # 1.3 10^3/ul (0.8-2.9); LYMPHOCYTES % 15.8 % (15.0-51.0); MEAN CORPUSCULAR HEMOGLOBIN 30.1 pg (29.0-33.0); MEAN CORPUSCULAR HGB CONC 32.4 g/dl (32.0-37.0); MEAN CORPUSCULAR VOLUME 92.8 fl (82.0-101.0); MEAN PLATELET VOLUME 11.8 fl (7.4-10.4); MONOCYTE # 0.7 10^3/ul (0.3-0.9); MONOCYTES % 8.1 % (0.0-11.0); NEUTROPHIL # 6.1 10^3/ul (1.6-7.5); NEUTROPHILS % 74.3 % (39.0-77.0); PLATELET COUNT 146 10^3/UL (140-415); RED BLOOD COUNT 4.19 10^6/ul (4.70-6.10); RED CELL DISTRIBUTION WIDTH 14.7 % (11.5-14.5); WHITE BLOOD COUNT 8.2 10^3/ul (4.8-10.8)
[2016-09-21 11:07] LABS: CREATININE 1.05 mg/dl (0.61-1.24)
[2016-09-21 11:08] LABS: CALCIUM 8.1 mg/dl (8.4-10.2)
[2016-09-21] MEDS ORDERED: POTASSIUM CHLORIDE (SR) 20 MEQ TAB PO STA (11:28)
[2016-09-21] MEDS ORDERED: LACTULOSE 30ML CUP PO PRN (11:30)
--- NOTE | 2016-09-21 11:33 | PN ---
Date/Time of Note Date/Time of Note DATE: 09/21/16 TIME: 11:29 Assessment/Plan VTE Prophylaxis VTE Prophylaxis Intervention: SCD's Lines/Catheters IV [facility] Type (from [facility] Peripheral IV Urinary Cath still in place: No Assessment/Plan Chief Complaint/Hosp Course Does not and plan 1. Acalculous cholecystitis with possible gangrene. Patient with MRI and abdominal imaging consistent with cholecystitis. Patient status post laparoscopic cholecystectomy. Continue on antibiotics. Continue with surgeon recommendations patient to be resumed on postop care. Still a MICHAEL drain on right side with serosanguineous fluid. DC per surgeon. 2. Leukocytosis. Continue on antibiotics. Likely secondary to #1. Afebrile at this time. Has improved 3. Essential hypertension. Continue on antihypertensives and adjust as needed. Stable 4. History of BPH. BPH medications to be continued. 5. Dyslipidemia. We'll continue on statin 6. Constipation. Suspect secondary to recent surgical intervention. Will provide with laxatives disposition and plan: Continue with analgesics for abdominal pain. Laxatives added. DC MICHAEL drain per surgeon. Discharge and cleared by regional sales consultant Discussed in of care with Dr. Moseley Problems: Subjective 24 Hr Interval Summary Free Text/Dictation Reports feeling constipated. States he has less pain in his abdomen. Exam/Review of Systems Vital Signs Vitals Vital Signs Date Time Temp Pulse Resp B/P Pulse Ox O2 Delivery O2 Flow Rate FiO2 09/21/16 07:35 98.9 85 20 116/58 91 09/20/16 01:08 Nasal Cannula 2.0 Intake and Output 09/20/16 09/20/16 09/21/16 15:00 23:00 07:00 Intake Total 1970 ml 1450 ml Output Total 50 ml 60 ml Balance -50 ml 1970 ml 1390 ml Exam General: In slight distress secondary to constipation Eyes: Pupils equal round reactive to Neck: Supple nontender, no JVD Cardiac: S1-S2 auscultated. Pulmonary: No wheezing or rhonchi GI: Minimally tender upon palpation noted with MICHAEL bulb on right flank Extremities: No obvious edema noted Skin: Surgical site on abdomen clean dry Neurologic: Remains alert and oriented 3 Results Result Diagram: 09/21/16 1030 09/21/16 1030 Results 24 hrs Laboratory Tests Test 09/21/16 10:30 Anion Gap 12 Basophils # 0.0 Basophils % 0.2 Blood Urea Nitrogen 16 Calcium Level 8.1 L Carbon Dioxide Level 27 Chloride Level 105 Creatinine 1.05 Eosinophils # 0.1 Eosinophils % 1.1 Glucose Level 122 Hematocrit 38.9 L Hemoglobin 12.6 L Lymphocytes # 1.3 Lymphocytes % 15.8 Mean Corpuscular Hemoglobin 30.1 Mean Corpuscular Hemoglobin Concent 32.4 Mean Corpuscular Volume 92.8 Mean Platelet Volume 11.8 H Monocytes # 0.7 Monocytes % 8.1 Neutrophils # 6.1 Neutrophils % 74.3 Nucleated Red Blood Cells # 0.0 Nucleated Red Blood Cells % 0.0 Platelet Count 146 # Potassium Level 3.0 L Red Blood Count 4.19 L Red Cell Distribution Width 14.7 H Sodium Level 141 White Blood Count 8.2 # Medications Medications Current Medications Allopurinol (Zyloprim) 300 mg DAILY PO Last administered on 09/21/16 08:33; Admin Dose 300 MG; Start 09/19/16 at 09:00 Benazepril HCl (Lotensin) 20 mg DAILY PO Last administered on 09/21/16 08:34; Admin Dose 20 MG; Start 09/19/16 at 09:00 Chlorthalidone (Hygroton) 12.5 mg DAILY PO Last administered on 09/21/16 08:33 ; Admin Dose 12.5 MG; Start 09/19/16 at 09:00 Finasteride (Proscar) 5 mg DAILY PO Last administered on 09/21/16 08:33; Admin Dose 5 MG; Start 09/19/16 at 09:00 Tamsulosin HCl (Flomax) 0.4 mg DAILY@21 PO Last administered on 09/20/16 20:10 ; Admin Dose 0.4 MG; Start 09/18/16 at 21:00 Atorvastatin Calcium 10 mg 10 mg DAILY@21 PO Last administered on 09/20/16 20: 10; Admin Dose 10 MG; Start 09/18/16 at 21:00 Sodium Chloride (NS) 1,000 ml @ 100 mls/hr Q10H IV Last administered on 06:47; Admin Dose 100 MLS/HR; Start 09/18/16 at 14:56 Ondansetron HCl (Zofran Inj) 4 mg Q6H PRN IV NAUSEA AND/OR VOMITING; Start 09/18 at 15:00 Acetaminophen (Tylenol Tab) 650 mg Q6H PRN PO PAIN LEVEL 1-3 OR FEVER Last administered on 09/20/16 16:23; Admin Dose 650 MG; Start 09/18/16 at 15:00 Acetaminophen (Tylenol Supp) 650 mg Q6H PRN [place] PAIN LEVEL 1-3 OR FEVER; Start 09/18/16 at 15:00 Acetaminophen/ Hydrocodone Bitart ([place] (5/325)) 1 tab Q6H PRN PO MODERATE PAIN LEVEL 4-6 Last administered on 09/21/16 05:29; Admin Dose 1 TAB; Start 09/18 at 15:00 Acetaminophen/ Hydrocodone Bitart ([place] (5/325)) 2 tab Q6H PRN PO SEVERE PAIN LEVEL 7-10 Last administered on 09/20/16 20:11; Admin Dose 2 TAB; Start 09/18/16 at 15:00 Docusate Sodium (Colace) 100 mg Q12H PRN PO CONSTIPATION; Start 09/18/16 at 15: 00 Magnesium Hydroxide (Milk Of Mag) 30 ml DAILY PRN PO CONSTIPATION; Start at 15:00 Bisacodyl (Dulcolax Supp) 10 mg DAILY PRN [place] CONSTIPATION; Start 09/18/16 at 15: 00 Pantoprazole 40 mg 40 mg DAILY@06 IV Last administered on 09/21/16 05:29; Admin Dose 40 MG; Start 09/19/16 at 06:00 Piperacillin Sod/ Tazobactam Sod (Zosyn 3.375gm/ 100 ml (Pmx)) 100 ml @ 200 mls /hr Q6 IVPB Last administered on 09/21/16 11:06; Admin Dose 200 MLS/HR; Start 09/18/16 at 18:00 Hydromorphone HCl (Dilaudid) 0.5 mg Q2H PRN IV Breakthrough PAIN Last administered on 09/20/16 02:47; Admin Dose 0.5 MG; Start 09/19/16 at 22:30 THERESE DE PAZ Sep 21, 2016 11:33
[2016-09-21] MEDS: SENNA TAB PO SCH ×2 (11:39→20:40)
[2016-09-21] MEDS: POLYETHYLENE GLYCOL 17 GM PACKET PO SCH (11:40)
[2016-09-21 20:00] VITALS: BP 145/72; RESP 18
[2016-09-21] MEDS: TAMSULOSIN (SR) 0.4 MG CAP PO SCH (20:40)
[2016-09-21] MEDS: ATORVASTATIN 10 MG TAB PO SCH (20:40)
[2016-09-22] MEDS: PIPER-TAZO 3.375 GM IV (PMX) 100 ML IVPB SCH ×3 (05:24→11:16)
[2016-09-22] MEDS ORDERED: PANTOPRAZOLE (EC) 40 MG TAB PO SCH (06:00)
[2016-09-22 06:23] LABS: ADD SCAN DIFF NO
[2016-09-22 06:54] LABS: BASOPHILS % 0.2 % (0.0-2.0); EOSINOPHILS # 0.1 10^3/ul (0.0-0.5); EOSINOPHILS % 1.8 % (0.0-7.0); HEMATOCRIT 36.1 % (42.0-52.0); HEMOGLOBIN 11.8 g/dl (14.0-18.0); LYMPHOCYTES # 1.2 10^3/ul (0.8-2.9); LYMPHOCYTES % 24.3 % (15.0-51.0); MEAN CORPUSCULAR HEMOGLOBIN 29.7 pg (29.0-33.0); MEAN CORPUSCULAR HGB CONC 32.7 g/dl (32.0-37.0); MEAN CORPUSCULAR VOLUME 90.9 fl (82.0-101.0); MEAN PLATELET VOLUME 12.1 fl (7.4-10.4); MONOCYTE # 0.7 10^3/ul (0.3-0.9); MONOCYTES % 13.2 % (0.0-11.0); NEUTROPHIL # 3.1 10^3/ul (1.6-7.5); NEUTROPHILS % 60.3 % (39.0-77.0); PLATELET COUNT 138 10^3/UL (140-415); RED BLOOD COUNT 3.97 10^6/ul (4.70-6.10); RED CELL DISTRIBUTION WIDTH 14.3 % (11.5-14.5); WHITE BLOOD COUNT 5.1 10^3/ul (4.8-10.8)
[2016-09-22 07:41] LABS: POTASSIUM 3.3 mmol/L (3.5-5.1)
[2016-09-22 07:44] LABS: CREATININE 0.82 mg/dl (0.61-1.24)
[2016-09-22 07:45] LABS: CALCIUM 7.9 mg/dl (8.4-10.2)
[2016-09-22] MEDS: SOD CHLORIDE 0.9% 1,000 ML IV SCH (07:59)
[2016-09-22] MEDS: ALLOPURINOL 300 MG TAB PO SCH (08:00)
[2016-09-22] MEDS: BENAZEPRIL 20 MG TAB PO SCH (08:00)
[2016-09-22] MEDS: FINASTERIDE 5 MG TAB PO SCH (08:00)
[2016-09-22] MEDS: POLYETHYLENE GLYCOL 17 GM PACKET PO SCH (08:00)
[2016-09-22] MEDS: CHLORTHALIDONE 25 MG TAB PO SCH (08:00)
[2016-09-22] MEDS: SENNA TAB PO SCH (08:00)
[2016-09-22 08:04] VITALS: BP 146/69; RESP 20
[2016-09-22] MEDS ORDERED: POTASSIUM CHLORIDE (SR) 20 MEQ TAB PO STA (15:05)
[2016-09-22] MEDS ORDERED: CEPH500C PO (15:07)
[2016-09-22] MEDS ORDERED: SENN-53 PO (15:07)
--- NOTE | 2016-09-22 15:09 | PDOCDIS ---
Discharge Instructions DIAGNOSIS Discharge Diagnosis: 1. Acalculous cholecystitis with possible gangrene 2. Essential hypertens HOME CARE INSTRUCTIONS: Diet Instructions: Low Fat /Cholesterol FOLLOW UP/APPOINTMENTS Appointments 1. Follow up with Dr. Dylon Marcos in one week THERESE DE PAZ Sep 22, 2016 15:09
--- NOTE | 2016-09-22 23:48 | PN ---
Date/Time of Note Date/Time of Note DATE: 09/21/16 TIME: 23:46 Assessment/Plan Lines/Catheters IV Catheter Type (from Nrs): Peripheral IV Guerrier in Place (from Nrs): No Assessment/Plan Chief Complaint/Hosp Course 1. Abdominal pain with acalculous cholecystitis s/p 3 port lap [place], liver bx 09/19 -Antibiotics. -Judicious fluid management -Drain 2. Morbid obesity. Patient is highly encouraged to optimize his nutrition and exercise to improve his overall health status. 3. Hypertension. Continue nutrition and medication control and encourage weight loss. 4. Diabetes. Continue nutrition and medication control and encourage weight loss. 5. Hypercholesterolemia. Continue nutrition and medication control and encourage weight loss. 6. Leukocytosis secondary to #1. Continue antibiotics and treatment as above. Thank you Late entry 09/21 Problems: Subjective 24 Hr Interval Summary s/p 3 port lap keyana, liver bx 09/19. Fever & chills improved. Pain improved. No n/v. No cp/sob. No cough/ocampo/dizzy/visual or neuro changes. No dysuria. Exam/Review of Systems Vital Signs Vitals Vital Signs Date Time Temp Pulse Resp B/P Pulse Ox O2 Delivery O2 Flow Rate FiO2 09/22/16 08:04 98.8 68 20 146/69 96 09/20/16 01:08 Nasal Cannula 2.0 Intake and Output 09/21/16 09/21/16 09/22/16 15:00 23:00 07:00 Intake Total 100 ml 1650 ml 1300 ml Output Total 200 ml 580 ml Balance 100 ml 1450 ml 720 ml Exam Free Text/Dictation GENERAL: No acute distress, obese. HEENT: Pupils equal, reactive. No scleral icterus. Mucous membranes are moist. NECK: Supple, no JVD. PULMONARY: Normal respiratory effort. No wheezing. HEART: S1, S2 present. ABDOMEN: Soft. Minimally tender in the epigastric and right upper quadrant. Drain. EXTREMITIES: No edema. VASCULAR: Cap refill less than 2 seconds. NEUROLOGIC: Alert, oriented, moves all 4 extremities grossly. Results Result Diagram: 09/22/16 0425 09/22/16 0425 VADIM SHAY MD Sep 22, 2016 23:48
--- NOTE | 2016-09-22 23:49 | PN ---
Date/Time of Note Date/Time of Note DATE: 09/22/16 TIME: 23:48 Assessment/Plan Lines/Catheters IV Catheter Type (from Nrs): Peripheral IV Guerrier in Place (from Nrs): No Assessment/Plan Chief Complaint/Hosp Course 1. Abdominal pain with acalculous cholecystitis s/p 3 port lap keyana, liver bx 09/19 -Antibiotics. -Judicious fluid management -Drain 2. Morbid obesity. Patient is highly encouraged to optimize his nutrition and exercise to improve his overall health status. 3. Hypertension. Continue nutrition and medication control and encourage weight loss. 4. Diabetes. Continue nutrition and medication control and encourage weight loss. 5. Hypercholesterolemia. Continue nutrition and medication control and encourage weight loss. 6. Leukocytosis secondary to #1. Continue antibiotics and treatment as above. Thank you Problems: Subjective 24 Hr Interval Summary s/p 3 port lap keyana, liver bx 09/19. Fever & chills improved. Pain improved. No n/v. No cp/sob. No cough/ocampo/dizzy/visual or neuro changes. No dysuria. Exam/Review of Systems Vital Signs Vitals Vital Signs Date Time Temp Pulse Resp B/P Pulse Ox O2 Delivery O2 Flow Rate FiO2 09/22/16 08:04 98.8 68 20 146/69 96 09/20/16 01:08 Nasal Cannula 2.0 Intake and Output 09/21/16 09/21/16 09/22/16 15:00 23:00 07:00 Intake Total 100 ml 1650 ml 1300 ml Output Total 200 ml 580 ml Balance 100 ml 1450 ml 720 ml Exam Free Text/Dictation GENERAL: No acute distress, obese. HEENT: Pupils equal, reactive. No scleral icterus. Mucous membranes are moist. NECK: Supple, no JVD. PULMONARY: Normal respiratory effort. No wheezing. HEART: S1, S2 present. ABDOMEN: Soft. Minimally tender in the epigastric and right upper quadrant. Drain. EXTREMITIES: No edema. VASCULAR: Cap refill less than 2 seconds. NEUROLOGIC: Alert, oriented, moves all 4 extremities grossly. Results Result Diagram: 09/22/16 0425 09/22/16 0425 VADIM SHAY MD Sep 22, 2016 23:49
--- NOTE | 2016-09-25 07:12 | DS ---
DATE OF ADMISSION: 09/18/2016 DATE OF DISCHARGE: 09/22/2016 FILTER CHANGER: Dr. Dylon Marcos DISCHARGE DIAGNOSES: 1. Acalculous cholecystitis with possible gangrene. 2. Leukocytosis secondary to #1. 3. Essential hypertension. 4. Benign prostatic hypertrophy. 5. Dyslipidemia. HOSPITAL COURSE: This is a 66-year-old male with history of hypertension, diabetes, dyslipidemia, B PH, gout and morbid obesity who came to [facility] due to reports of abdominal germain n. He did report that his pain was localized in the right upper quadrant of his abdomen with radiat ion to his upper back. He did have a CT scan that did show gallbladder dilation with pericholecysti c stranding when he was seen at outpatient clinic and told to go to [facility]. There was concern for chol ecystitis. He did come to [facility] and was found to have a blood pressure of 18 . He was continued on antihypertensives, and he was also seen by a general surgeon for his chol ecystitis. The patient did have further MRI that did show consistent cholecystitis and no evidence of biliary dilation of choledocholithiasis. The patient did get a laparoscopic cholecystectomy with MICHAEL drain in place. It is noted that the gallbladder was suspected to be possibly gangrenous and th erefore needed more IV antibiotics. He did have some initial leukocytosis, but this did resolve wit h good response from antibiotic therapy. During his course of stay, he did improve. He did report resolution of his abdominal pain. He was optimized with antihypertensives for hypertension and BPH medications for his history of BPH as well as statin medication for his dyslipidemia. During his co urse of his stay, he did improve. He was advised to follow up with surgeon in a week. The plan of care was discussed with patient, and patient did verbalize his understanding. On the day of dischar , the patient was in stable condition. Discharge physical exam and vital signs are stable. CONDITION: Stable. DISCHARGE PLAN: 1. Diet is low fat, low cholesterol. 2. The patient to follow up with Dr. Dylon Marcos in a week. DISCHARGE MEDICATIONS: 1. Keflex 500 mg p.o. t.i.d. 2. [place] 5/325 ____ hours as needed for pain. 3. Senna 2 tablets p.o. b.i.d. for constipation. 4. Allopurinol 300 mg p.o. daily. 5. Benazepril 20 mg p.o. daily. 6. Chlorthalidone 12.5 mg p.o. daily. 7. Finasteride 5 mg p.o. daily. 8. [place] 5/325 ____ as needed for pain. 9. Lovastatin 40 mg p.o. at bedtime. 10. Metformin 500 mg p.o. b.i.d. 11. Flomax 0.4 mg p.o. daily. DISCHARGE PROCESS TIME: 42 minutes. Discussed plan of care with Dr. Moseley. Dictated By: THERESE CHANG/JAY Conf#: [id number] DID#: [id number]
== END 2016-09-22 17:10 | disposition home health service (06) | DRG 419 ==
LOC: E/R 11:06 → PP2 13:30
PROVIDERS: ADMIT Hospitalist; ATTEND Hospitalist
PROC: 0FB04ZX Excision of Liver, Percutaneous Endoscopic Approach, Diagnostic (ICD-10-PCS; 2016-09-19)
PROC: 0FT44ZZ Resection of Gallbladder, Percutaneous Endoscopic Approach (ICD-10-PCS; principal; 2016-09-19 20:30)
DX: K81.0 Acute cholecystitis (principal); I10 Essential (primary) hypertension; E78.5 Hyperlipidemia, unspecified; E11.9 Type 2 diabetes mellitus without complications; D72.829 Elevated white blood cell count, unspecified; N40.0 Benign prostatic hyperplasia without lower urinary tract symptoms; E66.9 Obesity, unspecified; Z68.36 Body mass index [BMI] 36.0-36.9, adult; M10.9 Gout, unspecified; R94.5 Abnormal results of liver function studies
CPT/HCPCS: 74181; 76705; 80048; 80053; 80061; 82150; 83036; 83690; 83735; 84100; 84436; 84443; 84479; 84484; 85025; 85610; 85730; 88304; 88307; 88313; 93005; 96374; 96375; 96376; C9113; J0330; J1170; J1200; J2175; J2250; J2270; J2405; J2543; J2710; J3010; J7030; J7040; Q9967